=== PATIENT | male | born 1985 | race Hispanic/Latino ===

== ENCOUNTER 2018-02-09 20:53 | Inpatient (IN) | payer MEDICAID ==
--- NOTE | 2018-02-09 22:01 | C.PDOC ---
History Of Present Illness 32 year old male presents to the ER as a transfer from [facility] for psych admission for depression. Patient was medically cleared at [facility] and offers no complaints at this time. Chief Complaint (Nursing): Psychiatric Evaluation History Per: Patient History/Exam Limitations: no limitations Onset/Duration Of Symptoms: Days Current Symptoms Are (Timing): Still Present Suicide/Self Injury Attempted (Context): None Associated Symptoms: Depression Involuntary Hold By: None Recent travel outside of the [place]: No Past Medical History Reviewed: Historical Data, Nursing Documentation, Vital Signs Vital Signs: Last Vital Signs Temp 98.0 F 02/09/18 21:38 Pulse 59 L 02/09/18 21:38 Resp 20 02/09/18 21:38 BP 113/78 02/09/18 21:38 Pulse Ox 99 02/09/18 21:38 - Medical History PMH: Depression Family History: States: Unknown Family Hx - Social History Hx Alcohol Use: Yes Hx Substance Use: Yes - Immunization History Hx Tetanus Toxoid Vaccination: Yes Hx Influenza Vaccination: Yes Hx Pneumococcal Vaccination: Yes Review Of Systems Constitutional: Negative for: Fever, Chills Cardiovascular: Negative for: Chest Pain, Palpitations Respiratory: Negative for: Cough, Shortness of Breath Gastrointestinal: Negative for: Nausea, Vomiting Psych: Positive for: Depression Physical Exam - Physical Exam Appears: Non-toxic Skin: Normal Color, Warm, Dry Head: Atraumatic, Normacephalic Eye(s): bilateral: Normal Inspection Oral Mucosa: Moist Chest: Symmetrical, No Tenderness Cardiovascular: Rhythm Regular Respiratory: Normal Breath Sounds, No Rales, No Rhonchi, No Wheezing Gastrointestinal/Abdominal: Soft, No Tenderness Back: No CVA Tenderness Neurological/Psych: Oriented x3, Normal Speech Gait: Steady ED Course And Treatment O2 Sat by Pulse Oximetry: 99 (Room air) Pulse Ox Interpretation: Normal Progress Note: Patient ready for admission. Disposition - Disposition Disposition: HOSPITALIZED Disposition Time: 21:03 Condition: STABLE - Clinical Impression Clinical Impression: Depression - Scribe Statement The provider has reviewed the documentation as recorded by the Scribe Mike Garcia All medical record entries made by the Scribe were at my direction and personally dictated by me. I have reviewed the chart and agree that the record accurately reflects my personal performance of the history, physical exam, medical decision making, and the department course for this patient. I have also personally directed, reviewed, and agree with the discharge instructions and disposition.
--- NOTE | 2018-02-09 23:04 | PCM.BM ---
<Lela Taylor - Last Filed: 02/09/18 23:03> Treatment Plan Problems - Problems identified on initial assessmt Suicidal Ideation Date Initiated: 02/09/18 Time Initiated: 21:48 Assessment reference: NA Status: Active Depression Date Initiated: 02/09/18 Time Initiated: 21:48 Assessment reference: NA Status: Active Treatment assets and liabiliti Patient Assests: good support system, negotiates basic needs Patient Liabilities: poor support system, substance abuse (Heroin, Cocaine) - Milieu Protocol Maintain good personal hygiene: daily Encourage regular showers, daily Remind patient to perform daily oral care, every shift Assist patient to perform ADL's Conduct patient checks and document Observation sheet: Q15 minutes Maintain personal safety: every shift Educate patient to report safety concerns to staff, every shift Monitor environment for contraband/sharps Medication safety: Monitor for expected outcome, potential side effects: every shift, Assess barriers to learning: every shift, Assess readiness for medication education: every shift <Aaliyah Hedrick - Last Filed: 02/10/18 11:30> - Diagnosis (1) Schizo affective schizophrenia Status: Acute Interventions: 02/10/18 11:30 * Assess/adjust medications daily and /or as needed * See patient on an individual basis 7x/week to assess status of hallucinations * Discuss risks, benefits, side effects and alternatives of medications * <Breana Lane - Last Filed: 02/10/18 11:50> Family Contact Family involvement: Family/SO is involved Family contact: Patient agrees to contact Family contact name: Georgie Ruelas-mother Family contacted how many times per week?: 2 - Goals for Treatment Patient goals for treatment: "I want to leave." Discharge/Continuing Care - Education Needs Education Needs: Patient Medication, Patient Coping Skills, Patient Placement options, Patient Community resources - Discharge Discharge Criteria: Tolerates medication w/o severe side effects, Reduction of target symptoms Discharge to:: Longterm - Treatment Team Participation Discussed with Family/SO: No Was Patient/Family/SO present at Treatment Team Meeting: Yes
--- NOTE | 2018-02-10 09:32 | PCM.PSYCH ---
Initial Psychiatric Evaluation - Initial Psychiatric Evaluation Type of Admission: Voluntary Legal Status: Capacity Chief Complaint (in patient's own words): I dont know.' History of Present Illness and Precipitating Events: Patient is a 32-year-old male, single with no children, who is unemployed and homeless living in [place]. Patient is here for suicidal ideation. Pt appeared very disorganized and internally preoccupied. He appeared paranoid, delusional and disheveled. He reports that he did not really have suicidal thoughts that he only said it for his mother to allow him to live in the house. He was living in a residential, but he left there about 2 weeks ago. He is homeless since then. He denies any suicidal or homicidal ideation. He reports feeling depressed but denies being angry or anxious. He states sleeping well last night but complains about slight nausea. Patients mother states that he had many psychiatric problems since his childhood. She reports that he was diagnosed with ADHD at age 8 and has psychiatric hx of Schizophrenia. He has been in psychiatric unit multiple times in the past. He has been seeing PACT team 1x a week for his psychiatric treatment. Patient denies any visual or auditory hallucinations. He admits using heroin by sniffing about 4-5 bags a day. He states that the last time he used it was 4 days ago. He also admits drinking alcohol occasionally. Patient states that he wants to leave but he does not have any place to go. He has a flat affect and looks anxious. Allergies: Aspirin Psych hx: ADHD, Schizophrenia Medical hx: Asthma Family hx: denies Current Medications: Active Medications Generic Name Dose Route Start Last Admin Trade Name Wilder PRN Reason Stop Dose Admin Influenza Virus Vaccine 60 mcg 02/11/18 10:00 Fluzone Quad [id number] IM 02/11/18 10:01 .ONCE ONE Pneumococcal Polyvalent Vaccine 0.5 ml 02/12/18 10:00 Pneumovax 23 Vaccine IM 02/12/18 10:01 .ONCE ONE Past Psychiatric History - Past Psychiatric History Previous Treatment History: Inpatient Pertinent Medical Hx (Current Medical&Sleep Prob, Allergies): Allergies Allergy/AdvReac Type Severity Reaction Status Date / Time aspirin Allergy Verified 02/09/18 21:00 cloZAPine [Clozaril] 25 mg PO HS 02/09/18 Review of Systems - Review of Systems All systems: reviewed and no additional remarkable complaints except - Psychiatric Psychiatric: Anxiety, Auditory Hallucinations, Irritability, Paranoia, Suicidal Ideation Mental Status Examination - Personal Presentation Personal Presentation: Looks stated age - Affect Affect: Constricted, Flat - Motor Activity Motor Activity: Psychomotor Retardation - Reliability in Providing Information Reliability in Providing Information: Poor, due to alteration in thoughts, Poor, due to altered mood - Speech Speech: Disorganized - Formal Thought Process Formal Thought Process: Delusions, Paranoia, Loosening of associations - Hallucinations/Delusions Delusions: Persecution - Obsessions/Compulsions Obsessions: No Compulsions: No - Cognitive Functions Orientation: Person, Place, Situation, Time Sensorium: Alert Attention/Concentration: Attentive Abstract Thinking: [place] Estimate of Intelligence: Below average Judgement: Imparied, as evidence by: Poor judgement, Imparied, as evidence by: Lack of insight into illness - Risk Risk: Suicidal, Diminished functioning - Strength & Assets Inventory Strength & Assets Inventory: Family support DSM 5 DX - DSM 5 DSM 5 Diagnosis: Schizophrenia paranoid type continuous Opioid use moderate - Recommended/Plan of Treatment Treatment Recommendations and Plan of Treatment: Schizophrenia paranoid type continuous Opioid use moderate -CBT -Psychotherapy -Supportive therapy, group therapy, individual therapy -Atarax 25 mg PO Q6 prn -Clozapine 25 mg PO BID -Trazodone 50 mg PO QHS prn -Neurontin 100 mg PO TID -Klonopin 1 mg PO TID
[2018-02-11 06:56] VITALS: O2SAT 97
[2018-02-11] MEDS ORDERED: Influenza Vaccine 60 MCG/0.5 ML SYR (3 yr & up) IM ONE (10:00)
--- NOTE | 2018-02-11 10:05 | PCM.PYCHPN ---
Psychiatric Progress Note - Psychiatric Progress Note Patient seen today, length of contact: 15 min Patient Chief Complaint: I dont know.' Problems Identified/Issues Discussed: Patient seen and evaluated, chart reviewed and discussed with the nurse. Pt remained disorganized and internally preoccupied. He remained isolated and withdrawn, and confined to his room. He still appears paranoid and delusional. Patient is compliant with medications and denies any side effects. Symptoms are improving but pt needs more time to stabilize. Support and psychoeducation given. Medication Change: Yes Medical Record Reviewed: Yes Mental Status Examination - Cognitive Function Orientation: Person, Place, Situation, Time Memory: Intact Attention: WNL Concentration: Poor Association: Loose Fund of Knowledge: Poor - Mood Mood: Anxious - Affect Affect: Constricted, Flat - Speech Speech: Soft - Formal Thought Process Formal Thought Process: Delusions, Paranoia, Loosening of associations - Suicidal Ideation Suicidal Ideation: No - Homicidal Ideation Homicidal Ideation: No Goal/Treatment Plan - Goal/Treatment Plan Need for Continued Stay: Severe depression anxiety, Severe functional impairment Progress Toward Problem(s) and Goals/Treatment Plan: Schizophrenia paranoid type continuous Opioid use moderate -CBT -Psychotherapy -Supportive therapy, group therapy, individual therapy -Atarax 25 mg PO Q6 prn -Clozapine 25 mg PO BID -Trazodone 50 mg PO QHS prn -Neurontin 100 mg PO TID -Klonopin 1 mg PO TID - Smoking Cessation Smoking Cessation Initiated: No
[2018-02-11 17:17] LABS: BASO % 0.5 % (0.0-2.0); EOS # 0.2 K/uL (0.0-0.7); EOS % 2.7 % (0.0-4.0); HEMOGLOBIN 14.7 g/dL (12.0-18.0); LYMPH # 2.6 K/uL (1.0-4.3); LYMPH % 34.8 % (20.0-40.0); MEAN CELL VOLUME 87.9 fL (80.0-94.0); MEAN CORPUSCULAR HEMOGLOBIN 30.9 pg (27.0-31.0); MEAN CORPUSCULAR HGB CONC 35.2 g/dL (33.0-37.0); MEAN PLATELET VOLUME 8.2 fL (7.2-11.7); MONO # 0.5 K/uL (0.0-0.8); MONO % 6.6 % (0.0-10.0); NEUT # 4.1 K/uL (1.8-7.0); NEUT % 55.4 % (50.0-75.0); RBC 4.77 Mil/uL (4.40-5.90); RED CELL DISTRIBUTION WIDTH 13.9 % (11.5-14.5); WHITE BLOOD COUNT 7.4 K/uL (4.8-10.8)
[2018-02-12] MEDS ORDERED: Pneumococcal 23-Valent Vaccine IM ONE (10:00)
[2018-02-13 07:56] VITALS: TEMP 97.6
--- NOTE | 2018-02-13 12:25 | PCM.PYCHPN ---
Psychiatric Progress Note - Psychiatric Progress Note Patient seen today, length of contact: 15 min Patient Chief Complaint: I want to go to the jail.' Problems Identified/Issues Discussed: Patient seen and evaluated, chart reviewed and discussed with the nurse. As per the staff, pt still appears paranoid and delusional. He remained disorganized and internally preoccupied. He remained isolated and withdrawn, and confined to his room. Patient is compliant with medications and denies any side effects. Symptoms are improving but pt needs more time to stabilize. Support and psychoeducation given. Medication Change: Yes Medical Record Reviewed: Yes Mental Status Examination - Cognitive Function Orientation: Person, Place, Situation, Time Memory: Intact Attention: WNL Concentration: Poor Association: Loose Fund of Knowledge: Poor - Mood Mood: Anxious - Affect Affect: Constricted, Flat - Speech Speech: Soft - Formal Thought Process Formal Thought Process: Delusions, Paranoia, Loosening of associations - Suicidal Ideation Suicidal Ideation: No - Homicidal Ideation Homicidal Ideation: No Goal/Treatment Plan - Goal/Treatment Plan Need for Continued Stay: Severe depression anxiety, Severe functional impairment Progress Toward Problem(s) and Goals/Treatment Plan: Schizophrenia paranoid type continuous Opioid use moderate -CBT -Psychotherapy -Supportive therapy, group therapy, individual therapy -Atarax 25 mg PO Q6 prn -Clozapine 50 mg PO BID -Trazodone 50 mg PO QHS prn -Neurontin 300 mg PO TID -Klonopin 1 mg PO TID
--- NOTE | 2018-02-15 00:47 | PCM.PYCHPN ---
Psychiatric Progress Note - Psychiatric Progress Note Patient seen today, length of contact: 15 min Patient Chief Complaint: I m feeling same.'' Problems Identified/Issues Discussed: Patient seen and evaluated, chart reviewed and discussed with the nurse. As per the staff, pt still appears paranoid and delusional. He remained disorganized and internally preoccupied. He started coming out of his room, but remained bizarre. Patient is compliant with medications and denies any side effects. Symptoms are improving but pt needs more time to stabilize. Support and psychoeducation given. Medication Change: Yes Medical Record Reviewed: Yes Mental Status Examination - Cognitive Function Orientation: Person, Place, Situation, Time Memory: Intact Attention: WNL Concentration: Poor Association: Loose Fund of Knowledge: Poor - Mood Mood: Anxious - Affect Affect: Constricted, Flat - Speech Speech: Soft - Formal Thought Process Formal Thought Process: Delusions, Paranoia, Loosening of associations - Suicidal Ideation Suicidal Ideation: No - Homicidal Ideation Homicidal Ideation: No Goal/Treatment Plan - Goal/Treatment Plan Need for Continued Stay: Severe depression anxiety, Severe functional impairment Progress Toward Problem(s) and Goals/Treatment Plan: Schizophrenia paranoid type continuous Opioid use moderate -CBT -Psychotherapy -Supportive therapy, group therapy, individual therapy -Atarax 25 mg PO Q6 prn -Clozapine 50 mg PO daily -Clozapine 100 mg PO QHS -Trazodone 50 mg PO QHS prn -Neurontin 300 mg PO TID -Klonopin 1 mg PO TID
[2018-02-15 08:41] VITALS: RESP 20
[2018-02-15 16:01] VITALS: BP 127/81; PULSE 106
--- NOTE | 2018-02-15 22:24 | PCM.PYCHPN ---
Psychiatric Progress Note - Psychiatric Progress Note Patient seen today, length of contact: 15 min Problems Identified/Issues Discussed: Patient seen, chart reviewed, case discussed with the staff. Issues related to illness and treatment were discussed with the patient and staff. Reported compliant with treatment with no adverse affects. Tolerating treatment very well. Patient reported feeling better with the treatment. Date family meeting today with mother, patient, psychiatrist and elementary school social worker. Mother had some concerns about medications. Especially with Klonopin and gabapentin. Education provided to the mother and patient about Klonopin, gabapentin and Clozaril. Will reduce the dose of Klonopin to 0.5 mg TID from 1 mg TID before further reduction or discontinuation. Also mother wanted the patient to go to specific place for follow-up care after discharge from the hospital. Patient refused. Patient did not want to go and stay with mother rather he preferred to go to a assisted. Patient did not provide any reason to go to a assisted rather staying with the mo ther. According to patient this is his decision. Both patient and mother agreed with the above. Calm and cooperative. Awake, alert and oriented 3. No psychomotor activity, good eye contact, memory intact. Aftercare discussed with the patient. Denied any delusions, auditory or visual hallucinations, suicidal ideations or homicidal ideations at the time of evaluation. Medical Problems: Asthma Diagnostic Results: Reviewed DSM 5 Symptoms Update: Some improvement with treatment. Medication Change: Yes (Dose of Klonopin reduced to 0.5 mg 3 times daily from 1 mg 3 times daily.) Medical Record Reviewed: Yes Mental Status Examination - Cognitive Function Orientation: Person, Place, Situation, Time Memory: Intact Attention: WNL Concentration: WNL Association: [facility] Fund of Knowledge: [facility] Decription of patient's judgement and insights: Fair - Mood Mood: Neutral - Affect Affect: Constricted - Speech Speech: Appropriate - Formal Thought Process Formal Thought Process: No Impairment Psychotic Thoughts and Behaviors: None - Suicidal Ideation Suicidal Ideation: No - Homicidal Ideation Homicidal Ideation: No Goal/Treatment Plan - Goal/Treatment Plan Need for Continued Stay: Remain at risks for inpatient hospitalization, Discharge may exacerbated symptoms, Severe functional impairment Progress Toward Problem(s) and Goals/Treatment Plan: Patient/family/staff education. Supportive therapy. Reduce the dose of Klonopin to 0.5 mg 3 times a day from 1 mg 3 times a day. Continue rest of the treatment as before. Estimated Date of D/C: 02/18/18 - Smoking Cessation Smoking Cessation Initiated: Yes
--- NOTE | 2018-02-17 15:47 | PCM.PYCHDC ---
Mental Status Examination - Mental Status Examination Orientation: Person, Place, Time Memory: Intact Mood: Neutral Affect: Other (Appropriate) Speech: Appropriate Attention: WNL Concentration: WNL Association: WNL Fund of Knowledge: WNL Formal Thought Process: No Impairment Description of patient's judgement and insight: Fair Psychotic Thoughts and Behaviors: None Suicidal Ideation: No Current Homicidal Ideation?: No Discharge Summary - Discharge Note Reason for Hospitalization: Schizophrenia Opiate use disorder mild Laboratory Data: Reviewed Consultations:: List each consultation separately and include: 1. Reason for request. 2. Findings. 3. Follow-up Summary of Hospital Course include:: 1. Description of specific treatment plan utilized for patients during their course of treatmen. 2. Summarize the time- course for resolution of acute symptoms and/or regressed behaviors. 3. Describe issues identified and worked on during hospitalization. 4. Describe medication utilized. 5. Describe medical problems identified and treated. 6. Reassessment of suicide risk Summary of Hospital Course: Patient is a 32-year-old male, single with no children, who is unemployed and homeless living in [place]. Patient is here for suicidal ideation. Pt appeared very disorganized and internally preoccupied. He appeared paranoid, delusional and disheveled. He reports that he did not really have suicidal thoughts that he only said it for his mother to allow him to live in the house. He was living in a skilled nursing, but he left there about 2 weeks ago. He is homeless since then. He denies any suicidal or homicidal ideation. He reports feeling depressed but denies being angry or anxious. He states sleeping well last night but complains about slight nausea. Patients mother states that he had many psychiatric problems since his childhood. She reports that he was diagnosed with ADHD at age 8 and has psychiatric hx of Schizophrenia. He has been in psychiatric unit multiple times in the past. He has been seeing PACT team 1x a week for his psychiatric treatment. Patient denies any visual or auditory hallucinations. He admits using heroin by sniffing about 4-5 bags a day. He states that the last time he used it was 4 days ago. He also admits drinking alcohol occasionally. Patient states that he wants to leave but he does not have any place to go. He has a flat affect and looks anxious. Allergies: Aspirin Psych hx: ADHD, Schizophrenia Medical hx: Asthma Family hx: denies During his stay in the hospital patient was started on methadone and continue treatment with Clozaril. Today patient . Patient was also started on Klonopin and gabapentin. With patient's permission and family meeting with the mother. Mother wanted to send him to program patient refused. Initially patient signed a concent for release of information for the mother but after family meeting patient canceled the concent for the mother for release of information. Patient was attending groups and other activities on the unit along with pharmacotherapy. With the above treatment, patient started feeling better. Today patient was stable and ready for discharge from the hospital. At the time of evaluation and discharge, patient was calm and cooperative, awake, alert and oriented 3, had no delusions, no auditory or visual hallucinations, no suicidal ideations or homicidal ideations. Patient was discharged in a stable condition. - Final Diagnosis (DSM 5) Condition upon Discharge: STABLE Disposition: HOME/ ROUTINE Follow-up Treatment Plan: Patient/family/staff education. Supportive therapy. Reduce the dose of Klonopin to 0.5 mg 3 times a day from 1 mg 3 times a day. Continue rest of the treatment as before. Prescriptions/Medication Reconciliation: clonazePAM [Klonopin] 0.5 mg PO TID #90 tab cloZAPine [Clozaril] 100 mg PO HS #30 tab cloZAPine [Clozaril] 50 mg PO DAILY #30 tab Gabapentin [Neurontin] 300 mg PO TID #90 cap traZODone [Desyrel] 50 mg PO HS PRN #30 tab PRN Reason: Insomnia - Smoking Cessation Smoking Cessation Medication prescribed: Yes - Antipsychotic Medications Pt discharged on 2 or more routine antipsychotic medications: No
== END 2018-02-16 11:25 | disposition home or self-care (01) | DRG 430 ==
LOC: C.ER 20:53 → C.5E 21:03
PROVIDERS: ADMIT Psychiatry & Neurology Psychiatry; ATTEND Psychiatry & Neurology Psychiatry
PROC: GZ3ZZZZ Medication Management (ICD-10-PCS; principal; 2018-02-09)
PROC: GZHZZZZ Group Psychotherapy (ICD-10-PCS; 2018-02-09)
PROC: GZ56ZZZ Individual Psychotherapy, Supportive (ICD-10-PCS; 2018-02-09)
DX: F20.0 Paranoid schizophrenia (principal); F11.10 Opioid abuse, uncomplicated; R45.851 Suicidal ideations; Z59.0 Homelessness; F32.9 Major depressive disorder, single episode, unspecified; F90.9 Attention-deficit hyperactivity disorder, unspecified type; J45.909 Unspecified asthma, uncomplicated